=== PATIENT | female | born 1965 | race Caucasian/White ===

== ENCOUNTER 2016-10-07 16:57 | Emergency (ER) | payer OTHER ==
[2016-10-07 17:17] VITALS: BP 126/81
--- NOTE | 2016-10-07 17:39 | UC ---
Skin Complaint HPI - HPI Summary HPI Summary: Pt presents to [facility] with her family member. Pt reports has developed red, itchy rash in right antecubital fossa and left lateral ankle. Pt states wounds itch and are sore. No bleeding. Pt's grandchild with hand/foot/mouth disease and is concerned this is the cause of the wounds. No analgesia taken. No antihistamine taken. Pt without other complaints. no cp, sob, abd pain no n/v/d No fevers, chills, rash. No sore throat, ear pain. No difficulty swallowing. Pt first noted wounds yesterday morning. have not changed in size. Pt's son is here with multiple bite wounds from bed bugs - pt has seen wounds. House and laundry has been washed and cleaned - states share wall with another apartment and this apartment has bed bugs. 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 Hx Last Menstrual Period: 10/2012 Onset/Duration: Sudden Onset - Allergy/Home Medications Allergies/Adverse Reactions: Allergies Allergy/AdvReac Type Severity Reaction Status Date / Time Buspirone [From Buspar] Allergy Intermediate Swelling Verified 10/07/16 17:17 Cephalexin [From Keflex] Allergy Intermediate Hives Verified 10/07/16 17:17 Ciprofloxacin [From Cipro] Allergy Intermediate Rash Verified 10/07/16 17:17 Levofloxacin [From Levaquin] Allergy Intermediate Hives Verified 10/07/16 17:17 Penicillins Allergy Intermediate Hives Verified 10/07/16 17:17 Sulfamethoxazole Allergy Intermediate Rash Verified 10/07/16 17:17 w/Trimethoprim [From Bactrim] Tetracycline Allergy Rash And Verified 10/07/16 17:17 Itching Home Medications: Home Medications Buprenorphine/Naloxone SL TAB* [Suboxone 8-2 mg SL TAB*] 1 tab.sl SL BID [History Confirmed 10/07/16] Gabapentin CAP(*) [Neurontin 400 mg CAP(*)] 2 tab PO TID 10/07/16 [History Confirmed 10/07/16] Omeprazole CAP* [Prilosec CAP* 20 MG] 40 mg PO DAILY 10/07/16 [History Confirmed 10/07/16] Oxybutynin TAB* [Ditropan TAB*] 5 mg PO BID 10/07/16 [History Confirmed 10/07/16 ] PARoxetine HCL TAB* [Paxil TAB*] 40 mg PO DAILY 10/07/16 [History Confirmed 06/20] Review of Systems Constitutional: Negative Skin: Rash Eyes: Negative ENT: Negative Respiratory: Negative Cardiovascular: Negative Gastrointestinal: Negative Genitourinary: Negative Motor: Negative Neurovascular: Negative Musculoskeletal: Negative Neurological: Negative Psychological: Negative All Other Systems Reviewed And Are Negative: Yes PMH/Surg Hx/FS Hx/Imm Hx Previously Healthy: Yes - Surgical History Surgical History: Yes Surgery Procedure, Year, and Place: GALL BLADDER REMOVAL , HERNIA REPAIR. BILATEREAL CARPAL TUNNEL REPAIR - Social History Occupation: Unemployed Lives: With Family Alcohol Use: None Substance Use Type: None Smoking Status (MU): Light Every Day Tobacco Smoker Type: Cigarettes Amount Used/How Often: 1 ppd Have You Smoked in the Last Year: Yes Physical Exam Triage Information Reviewed: Yes Appearance: Well-Appearing, No Pain Distress, Well-Nourished Vital Signs: Initial Vital Signs Temp 98.5 F 10/07/16 17:12 Pulse 79 10/07/16 17:12 Resp 16 10/07/16 17:12 BP 126/81 10/07/16 17:12 Pulse Ox 97 10/07/16 17:12 Vital Signs Reviewed: Yes Eye Exam: Normal Eyes: Positive: Conjunctiva Clear. Negative: Discharge ENT Exam: Normal ENT: Positive: Normal ENT inspection, Hearing grossly normal, Pharynx normal, Nasal drainage, TMs normal Dental Exam: Normal Neck exam: Normal Neck: Positive: Supple, Nontender, No Lymphadenopathy Respiratory Exam: Normal Respiratory: Positive: Chest non-tender, Lungs clear, Normal breath sounds, No respiratory distress, No accessory muscle use Cardiovascular Exam: Normal Cardiovascular: Positive: RRR, No Murmur, Pulses Normal Abdominal Exam: Normal Abdomen Description: Positive: Nontender, No Organomegaly Bowel Sounds: Positive: Present Musculoskeletal Exam: Normal Musculoskeletal: Positive: Strength Intact Neurological Exam: Normal Neurological: Positive: Alert Psychological Exam: Normal Psychological: Positive: Normal Response To Family Skin: Positive: Other - Pt with 6 raised bumps right anetcubital fossa, pruritis , erythematous base, no drainage Pt with similar wounds at left ankle Course/Dx - Course Course Of Treatment: Pt with rash in right antecubital fossa and left ankle. son with bed bug bites. wound c/w this - no concern for lyme as discussed with pt - Diagnoses Provider Diagnoses: insect bites Discharge - Discharge Plan Condition: Stable Disposition: HOME Patient Education Materials: Acute Rash (ED) Referrals: Romina Francois PA [Primary Care Provider] - Additional Instructions: The doctor that evaluated you today does not think your current rash is related to hand foot and mouth disease. The doctor thinks it is either bed bugs or related to heat. Okay to take tylenol or ibuprofen as needed for pain - take with food - do not take for more than 4-5 days Okay to apply cool soaks to your wounds Okay to apply over the counter hydrocortisone cream as needed for itching Contact your doctor to schedule a follow-up appointment. Contact your doctor or return with questions or concerns
[2016-10-07] MEDS ORDERED: Acetaminophen TAB* 325 MG PO ONE (18:01)
== END 2016-10-07 18:18 | disposition home or self-care (01) ==
LOC: UCCORT 16:57
DX: S50.361A Insect bite (nonvenomous) of right elbow, initial encounter (principal); S90.562A Insect bite (nonvenomous), left ankle, initial encounter; W57.XXXA Bitten or stung by nonvenomous insect and other nonvenomous arthropods, initial encounter; Y93.9 Activity, unspecified; Y92.9 Unspecified place or not applicable; Z90.49 Acquired absence of other specified parts of digestive tract; Z88.1 Allergy status to other antibiotic agents; Z88.0 Allergy status to penicillin; Z88.2 Allergy status to sulfonamides; F17.210 Nicotine dependence, cigarettes, uncomplicated
CPT/HCPCS: 99212; A9270-GY; G0463

== ENCOUNTER 2019-05-09 13:33 | Emergency (ER) | payer SELFPAY ==
[2019-05-09 14:46] VITALS: BP 152/74
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
== END 2019-05-09 16:03 | disposition home or self-care (01) ==
LOC: UCCORT 13:33
DX: S16.1XXA Strain of muscle, fascia and tendon at neck level, initial encounter (principal); K25.9 Gastric ulcer, unspecified as acute or chronic, without hemorrhage or perforation; B19.20 Unspecified viral hepatitis C without hepatic coma; F32.9 Major depressive disorder, single episode, unspecified; R53.83 Other fatigue; V89.2XXA Person injured in unspecified motor-vehicle accident, traffic, initial encounter; Y92.9 Unspecified place or not applicable; Z88.0 Allergy status to penicillin; Z88.1 Allergy status to other antibiotic agents; Z88.2 Allergy status to sulfonamides; Z88.8 Allergy status to other drugs, medicaments and biological substances; Z79.899 Other long term (current) drug therapy; F17.210 Nicotine dependence, cigarettes, uncomplicated; Z98.890 Other specified postprocedural states
CPT/HCPCS: 72125; 99213; G0463